=== PATIENT | male | born 1930 | race Caucasian/White ===

== ENCOUNTER 2016-11-06 12:24 | Outpatient (CLI) | payer MEDICARE, OTHER | END 2016-11-06 12:25 | LOC: LAB 12:24 | PROVIDERS: ATTEND Internal Medicine Cardiovascular Disease | DX: Z79.01 Long term (current) use of anticoagulants (principal) | CPT/HCPCS: 36415; 85610 ==

== ENCOUNTER 2017-02-07 09:05 | Outpatient (CLI) | payer MEDICARE, OTHER ==
[2017-02-07 09:51] LABS: APPEARANCE,URINE Slightly Cloudy (CLEAR); COLOR,URINE Yellow (YELLOW); OCCULT BLOOD,URINE 1+ (NEGATIVE); PH URINE 5.5 (5.0 - 8.0); UROBILINOGEN URINE 0.2 Eu (0.2-1.0)
[2017-02-07 10:44] LABS: AMORPHOUS SEDIMENT,UR FEW (NEGATIVE)
== END 2017-02-07 10:04 ==
LOC: LAB 09:05
PROVIDERS: ATTEND Urology
DX: R35.0 Frequency of micturition (principal); R30.0 Dysuria; R39.15 Urgency of urination
CPT/HCPCS: 81002; 87086